=== PATIENT | male | born 1990 ===

== ENCOUNTER 2018-01-11 12:57 | Outpatient (CLI) | payer OTHER ==
[~2018-01-11] VITALS: Ht 172.7 cm; Wt 68.0 kg
== END 2018-01-11 13:15 | disposition home or self-care (01) ==
LOC: OFIC 805 12:57
DX: H61.23 Impacted cerumen, bilateral (principal); H90.3 Sensorineural hearing loss, bilateral

== ENCOUNTER 2018-01-22 12:51 | Outpatient (CLI) | payer OTHER ==
[~2018-01-22] VITALS: Ht 152.4 cm; Wt 68.0 kg
== END 2018-01-22 13:15 | disposition home or self-care (01) ==
LOC: OFIC 805 12:51
DX: H61.23 Impacted cerumen, bilateral (principal); H90.3 Sensorineural hearing loss, bilateral

== ENCOUNTER 2019-02-17 12:46 | Outpatient (CLI) | payer OTHER ==
[~2019-02-17] VITALS: Ht 152.4 cm; Wt 68.0 kg
== END 2019-02-17 13:00 | disposition home or self-care (01) ==
LOC: OFIC 805 12:46
DX: H61.23 Impacted cerumen, bilateral (principal); H91.8X3 Other specified hearing loss, bilateral; C10.9 Malignant neoplasm of oropharynx, unspecified

== ENCOUNTER 2019-02-24 13:04 | Outpatient (CLI) | payer OTHER ==
[~2019-02-24] VITALS: Ht 152.4 cm; Wt 68.0 kg
== END 2019-02-24 13:20 | disposition home or self-care (01) ==
LOC: OFIC 805 13:04
DX: C10.9 Malignant neoplasm of oropharynx, unspecified (principal)

== ENCOUNTER 2019-03-14 14:19 | Outpatient (CLI) | payer OTHER ==
[~2019-03-14] VITALS: Ht 152.4 cm; Wt 68.0 kg
== END 2019-03-14 14:40 | disposition home or self-care (01) ==
LOC: OFIC 805 14:19
DX: C10.9 Malignant neoplasm of oropharynx, unspecified (principal); R04.1 Hemorrhage from throat

== ENCOUNTER 2019-03-14 15:21 | Inpatient (IN) | payer OTHER ==
[~2019-03-14] VITALS: Ht 170.2 cm; Wt 68.0 kg
--- NOTE | 2019-03-14 15:35 | NUR ---
SE RECIBE PTE ALERTA Y ORIENTADO X3 ACOMPANADO POR FAMILIAR LA MADRE REFIERE QUE ESTA SANGRANDO POR LA PATTI MCKENZIE .
== END 2019-03-15 16:44 | disposition home or self-care (01) | DRG 909 ==
LOC: ER 15:21 → O/R 15:47 → SURH 18:32
PROVIDERS: ADMIT Otolaryngology
PROC: 0W3Q0ZZ Control Bleeding in Respiratory Tract, Open Approach (ICD-10-PCS; principal; 2019-03-14 17:00)
DX: J95.830 Postprocedural hemorrhage of a respiratory system organ or structure following a respiratory system procedure (principal)

== ENCOUNTER 2019-03-20 11:55 | Outpatient (CLI) | payer OTHER ==
[~2019-03-20] VITALS: Ht 152.4 cm; Wt 68.0 kg
== END 2019-03-20 12:10 | disposition home or self-care (01) ==
LOC: OFIC 805 11:55
DX: C10.9 Malignant neoplasm of oropharynx, unspecified (principal); R04.1 Hemorrhage from throat

== ENCOUNTER 2019-03-27 14:00 | Outpatient (CLI) | payer OTHER ==
[~2019-03-27] VITALS: Ht 152.4 cm; Wt 68.0 kg
== END 2019-03-27 14:15 | disposition home or self-care (01) ==
LOC: OFIC 805 14:00
DX: C10.9 Malignant neoplasm of oropharynx, unspecified (principal); R40.1 Stupor

== ENCOUNTER 2019-04-10 12:28 | Outpatient (CLI) | payer OTHER ==
[~2019-04-10] VITALS: Ht 152.4 cm; Wt 68.0 kg
== END 2019-04-10 14:45 | disposition home or self-care (01) ==
LOC: OFIC 805 12:28
DX: C10.9 Malignant neoplasm of oropharynx, unspecified (principal); H90.3 Sensorineural hearing loss, bilateral; H61.23 Impacted cerumen, bilateral

== ENCOUNTER 2020-04-08 12:44 | Outpatient (CLI) | payer OTHER | END 2020-04-08 13:00 | disposition home or self-care (01) | LOC: OFIC 805 12:44 | PROVIDERS: ATTEND Otolaryngology | DX: C10.8 Malignant neoplasm of overlapping sites of oropharynx (principal); H61.23 Impacted cerumen, bilateral; H90.3 Sensorineural hearing loss, bilateral; K11.8 Other diseases of salivary glands ==

== ENCOUNTER 2020-10-20 12:08 | Outpatient (CLI) | payer OTHER | END 2020-10-20 14:11 | disposition home or self-care (01) | LOC: OFIC 805 12:08 | PROVIDERS: ATTEND Otolaryngology | DX: C10.8 Malignant neoplasm of overlapping sites of oropharynx (principal); H61.23 Impacted cerumen, bilateral; H90.3 Sensorineural hearing loss, bilateral ==